=== PATIENT | male | born 1990 | race Hispanic/Latino ===

== ENCOUNTER 2018-02-02 17:02 | Emergency (ER) | payer OTHER ==
[2018-02-02 17:57] LABS: APPEARANCE,URINE Clear (CLEAR); BILIRUBIN,URINE Negative (NEGATIVE); COLOR,URINE Yellow (YELLOW); GLUCOSE, URINE (UA) Negative (NEGATIVE); KETONES,URINE Negative (NEGATIVE); LEUKOCYTE ESTERASE ,URINE Negative (NEGATIVE); NITRATE,URINE Negative (NEGATIVE); OCCULT BLOOD,URINE Negative (NEGATIVE); PH,URINE 5.5 (5.0-8.0); PROTEIN,URINE Negative (NEGATIVE); UROBILINOGEN,URINE 0.2 mg/dL (0.2-1.0)
[2018-02-02] MEDS ORDERED: IBUPROFEN 400 MG TABLET ONE (18:08)
[2018-02-02] MEDS ORDERED: TRAMADOL HCL 50 MG TABLET ONE (18:08)
[2018-02-02] MEDS ORDERED: IBUPROFEN 200 MG TAB ONE (18:08)
[2018-02-02] MEDS ORDERED: CYCLOBENZAPRINE HCL 10 MG TABLET ONE (18:08)
== END 2018-02-02 18:25 | disposition home or self-care (01) ==
LOC: EDH 17:02
DX: M54.5 Low back pain (principal); M62.830 Muscle spasm of back; Z72.0 Tobacco use
CPT/HCPCS: 72100; 81003

== ENCOUNTER 2018-09-27 17:59 | Emergency (ER) | payer OTHER ==
[2018-09-27] MEDS ORDERED: LIDOCAINE HCL 1% 20 ML VIAL ONE (18:24)
[2018-09-27] MEDS ORDERED: TETANUS/DIPHTHERIA TOXOID [ADULT] 0.5 ML VIAL IM ONE (18:24)
[2018-09-27] MEDS ORDERED: OCTYL 2-CYANOACRYLATE 1 EACH TP ONE (19:30)
== END 2018-09-27 19:56 | disposition home or self-care (01) ==
LOC: EDH 17:59
DX: S60.351A Superficial foreign body of right thumb, initial encounter (principal); X58.XXXA Exposure to other specified factors, initial encounter; Y93.89 Activity, other specified; Y92.89 Other specified places as the place of occurrence of the external cause; Y99.8 Other external cause status
CPT/HCPCS: 73140; 90471; 90714

== ENCOUNTER 2022-09-08 09:54 | Emergency (ER) | payer BC, OTHER ==
[~2022-09-08] VITALS: Ht 177.8 cm; Wt 98.0 kg
[2022-09-08 09:56] VITALS: BP 138/87; PULSE 77; RESP 18
== END 2022-09-08 12:27 | disposition home or self-care (01) ==
LOC: EDH 09:54
DX: S69.92XA Unspecified injury of left wrist, hand and finger(s), initial encounter (principal); X50.9XXA Other and unspecified overexertion or strenuous movements or postures, initial encounter; Y93.89 Activity, other specified; Y92.89 Other specified places as the place of occurrence of the external cause; Y99.8 Other external cause status
CPT/HCPCS: 73130